=== PATIENT | male | born 1985 | race Two or more races ===

== ENCOUNTER 2019-01-27 22:35 | Emergency (ER) | payer SELFPAY ==
[~2019-01-27] VITALS: Ht 170.2 cm; Wt 88.0 kg
[2019-01-27 22:51] VITALS: BP 124/50
== END 2019-01-28 02:44 | disposition left against medical advice (07) ==
LOC: ER 22:35
DX: Z53.21 Procedure and treatment not carried out due to patient leaving prior to being seen by health care provider (principal)